=== PATIENT | female | born 1980 | race African-American/Black ===

== ENCOUNTER 2024-01-05 19:47 | Emergency (ER) | payer OTHER, SELFPAY ==
--- NOTE | ~2024-01-05 | XR_ITS ---
EXAMINATION: XR SHOULDER, LEFT CLINICAL INFORMATION: Pain COMPARISON: None available. TECHNIQUE: AP external rotation, Grashey, scapular Y, and axillary views of the left shoulder. FINDINGS: Mild widening of the coracoclavicular distance, may reflect AC joint separation. No acute fracture or dislocation. XR/XR shoulder LT min 2V IMPRESSION: Mild widening of the coracoclavicular distance, may reflect AC joint separation. No acute fracture or dislocation.
[2024-01-05 20:03] VITALS: BP 145/78; PULSE 90; RESP 16; TEMP 36.9; O2SAT 100
[2024-01-05 20:17] VITALS: BP 145/78; BP 170/100; PULSE 109; PULSE 90; RESP 16; TEMP 36.9; O2SAT 100; O2SAT 99; BMI 38.7
[2024-01-05] MEDS: Acetaminophen 325 MG TABLET 975 MG PO (21:16)
[2024-01-05 22:17] LABS: UPreg QC Valid YES; Urine Pregnancy NEGATIVE (NEGATIVE)
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
[2024-01-05] MEDS: Acetaminophen 325 MG TABLET 650 MG PO (23:49)
[2024-01-06 00:27] VITALS: BP 140/74; PULSE 79; RESP 18; TEMP 37.3; O2SAT 99
== END 2024-01-06 00:28 | disposition home or self-care (01) ==
PROVIDERS: Emergency Provider Emergency Medicine; PCP Internal Medicine
DX: S43.102A Unspecified dislocation of left acromioclavicular joint, initial encounter (principal); M25.512 Pain in left shoulder; V43.52XA Car driver injured in collision with other type car in traffic accident, initial encounter; Y93.89 Activity, other specified; Y92.410 Unspecified street and highway as the place of occurrence of the external cause; Y99.8 Other external cause status
CPT/HCPCS: 73030; 81025; 99284

== ENCOUNTER 2025-03-01 21:29 | Emergency (ER) | payer MEDICAID, SELFPAY ==
--- NOTE | ~2025-03-01 | XR_ITS ---
CLINICAL HISTORY: cough, sob 2 view chest x-ray Comparison: None provided Findings: The lungs are clear. Normal size heart. No acute fracture. IMPRESSION: 1. No acute findings. This document has been electronically signed by: Behzad Garcia MD on 03/01/2025 22:41:06
[2025-03-01 21:39] VITALS: BP 147/75; PULSE 82; RESP 18; TEMP 36.5; O2SAT 99; BMI 31.8
[2025-03-01 22:38] LABS: Resp Syncy Virus RNA Qual PCR NEGATIVE (Negative); SARS COV2 PCR INHOUSE NEGATIVE (Negative)
[2025-03-02 00:28] VITALS: BP 115/64; PULSE 87; RESP 18; TEMP 36.9; O2SAT 96
[2025-03-02 00:42] VITALS: PULSE 83; RESP 18; O2SAT 99
[2025-03-02] MEDS: Albuterol Sulfate 2.5 MG, Albuterol/Iprat 2.5/0.5MG 3 ML 3 ML INHALE (00:43)
[2025-03-02 02:05] VITALS: PULSE 100; RESP 20; O2SAT 98
[2025-03-02] MEDS: Albuterol Sulfate 7.5 MG, Albuterol Sulfate (0.083%) 2.5 MG 10 MG INHALE (02:07)
[2025-03-02] MEDS: guaiFEN/Codeine SF 200/20/10ML 10 ML LIQUID 5 ML PO (02:29)
--- OUTSIDE RECORDS SUMMARY | 2025-03-02 03:07 | XMS_ITS | Encounter Summary ---
Author Organization [facility] Address [address] [place] [id number] Phone Care Team Providers Care Paste Up Worker Name Role Phone Pcp, Unknown Primary Care Provider Unavailabl e Encounter Details Date Type Department Care Team (Late st Contact Info) Description 08/26/2019 Telephone [facility] [address] [place] [address] Maria Elena Mitchell [address] [place] [address] [email or web address] Social History Tobacco Use Types Packs/Day Years Used Date Smoking Tobacco: Never Assessed Comments Unknown Sex and Gender Information Value Date Recorded Sex Assigned at Female 08/01/2024 3:13 PM EST Legal Sex Female 11:03 AM EST Gender Identity Female 08/01/2024 3:13 PM EST Sexual Orientation Don't know 08/01/2024 3: 13 PM EST documented as of this encounter Plan of Treatment Not on file documented as of this encounter Visit Diagnoses Not on filedocumented in this encounter Additional Health Concerns Infection Onset Date Last Indicated Resolved Time CoV-Risk Comment:Referred for COVID-19 testing 08/25/2019 08/26/2019 09/09/2019 1:22 AM E DT CoV-Risk 11/20/2019 11/21/2019 12/04/2019 1:23 AM EDT CoV-Risk Comment:Per note documentation 08/01/2024 08/01/2024 12:14 PM EDT documented as of this encounter Care Teams Paste Up Worker Relationship Specialty Start Date End Date Pcp, Unknown PCP - General 08/26/19 documented as of this encounter Additional Source Comments The information contained in this document represents components of the legal health record. It is not the complete legal health record.[facility]
--- OUTSIDE RECORDS SUMMARY | 2025-03-02 03:07 | XMS_ITS | Encounter Summary ---
Author Organization [facility] Address [address] [place] [address] Care Team Providers Care Wool Carder Name Role Phone Maikel Warner Primary Care Provider Unavailab le Encounter Details Date Type Department Care Team (Late st Contact Info) Description 05/19/2024 [facility] Therapeuticst Message [facility] Financial Clearance Department [address] [place] [address] Mychart, Generic Provider [address] [place], [place] [id number] Approval Social History Tobacco Use Types Packs/Day Years Used Date Smoking Tobacco: Never Assessed Comments Unknown Sex and Gender Information Value Date Recorded Sex Assigned at Female 07/10/2023 8:37 AM EST Legal Sex Female 2:25 PM EST Gender Identity Female 07/10/2023 8:37 AM EST Sexual Orientation Straight 07/10/2023 8: 37 AM EST documented as of this encounter Plan of Treatment Not on file documented as of this encounter Visit Diagnoses Not on filedocumented in this encounter Care Teams Wool Carder Relationship Specialty Start Date End Date Makiel Warner [address] [place] [phone] PCP - General Internal Medicine 06/09/24 documented as of this encounter
--- OUTSIDE RECORDS SUMMARY | 2025-03-02 03:07 | XMS_ITS | Encounter Summary ---
Author Organization [facility] Address [address] [place] [phone] Phone Care Team Providers Care Facilities Project Manager Name Role Phone Pcp, Unknown Primary Care Provider Unavailabl e Encounter Details Date Type Department Care Team (Late st Contact Info) Description 08/01/2024 Procedure Pass [facility], Ct Scan - [address] [address] Social History Tobacco Use Types Packs/Day Years Used Date Smoking Tobacco: Never Smokeless Tobacco: Never Alcohol Use Standard Drinks/Week Comments Not Currently 0 (1 standard drink = 0.6 oz pur e alcohol) Education Answer Date Recorded Are you interested in more education? Not on jacobo e 09/21/2022 Are you concerned about learning? Not on file 09/21/2022 No 09/21/2022 No 09/21/2022 Food Answer Date Recorded Within the past 6 months we worried whether our food would run out before we got money to buy more. Never True 08/01/2024 Within the past 6 months the food we bought just didn't last and we didn't have enough money to get more. Never True Residential Stability Answer Date Recor ded What is your housing situation today? I have mary beth sing 08/01/2024 How many times have you move d in the past 12 months? Zero (I did not move) 08/01/2024 Paying for Meds Answer Date Recorded Do you have trouble paying for medicines? No 08/01/2024 Paying Utility Bills Answer Date Record ed Do you have trouble paying your heating or elect ricity bill? No 08/01/2024 Transportation Answer Date Recorded Has the lack of transportati on kept you from medical appointments or from getting medications? No 08/01/2024 Digital Access Answer Date Recorded No 08/01/2024 Yes 08/01/2024 Do you have reliable internet access at home? Ye s 08/01/2024 Do you have a device (e.g., phone, tablet, computer) with a working camera? Yes 08/01/2024 Intimate Partner Violence Answer Date R ecorded Are you denied basic needs s uch as food, clothing, or medical care? No 08/01/2024 In the past 12 months have y ou been in a relationship with a person who hurts, threatens, or tries to control you? No 08/01/2024 Are you denied basic needs s uch as food, clothing, or medical care? No 08/01/2024 In the past 12 months have y ou been in a relationship with a person who hurts, threatens, or tries to control you? No 08/01/2024 Comments No Sex and Gender Information Value Date Recorded Sex Assigned at Female 08/01/2024 3:13 PM EST Legal Sex Female 11:03 AM EST Gender Identity Female 08/01/2024 3:13 PM EST Sexual Orientation Don't know 08/01/2024 3 :13 PM EST documented as of this encounter Functional Status * Calculated C-SSRS Risk Score (Lifetime/Recent) Answer Date of Assessment Author No Risk Indicated 08/01/2024 2:03 PM Amarilis Kelley RN * [place] Suicide Severity Rating Scale (Screener/Recent Self-Report) Question Answer Date of Assessment Author 1. Wish to be (Past 1 Month) No 08/01/2024 2:03 PM Maykel Kelley ph, RN 2. Non-Specific Active Suici lucian Thoughts (Past 1 Month) No 08/01/2024 2:03 PM Maykel Kelley RN 6. Suicidal Behavior (Lifetime) No 2:03 PM Maykel Kelley RN documented as of this encounter Plan of Treatment Not on file documented as of this encounter Visit Diagnoses Not on filedocumented in this encounter Additional Health Concerns Infection Onset Date Last Indicated Resolved Time CoV-Risk Comment:Per note documentation 08/01/2024 08/01/2024 12:14 PM EDT documented as of this encounter Care Teams Facilities Project Manager Relationship Specialty Start Date End Date Pcp, Unknown PCP - General 08/26/19 documented as of this encounter Additional Source Comments The information contained in this document represents components of the legal health record. It is not the complete legal health record.[facility]
--- OUTSIDE RECORDS SUMMARY | 2025-03-02 03:07 | XMS_ITS | Clinical Summary ---
Author Organization [facility] Address [address] [place] [address] Phone Care Team Providers Care Public Relations Senior Associate Name Role Phone Pcp, Unknown Primary Care Provider Unavailabl e Allergies Active Allergy Reactions Criticality Noted Date Comments Aspirin Shortness Of Breath,Wheezing High 01/10/2010 Other Reaction(s): Other (See Comments), whezing, breathing difficulty Other reaction(s): whezing, breathing difficulty Cat Dander 08/05/2014 Diph,Pertus(Acel),Tet Ped (Pf) 2012 Other Reaction(s): Rash/Dermatitis Full body rash per pt Dog Dander Hives,Itching,Shortn ess Of Breath,Wheezing High 08/05/2014 Haemophilus Influenzae Type B Unknown 08/20/2022 Latex Other (See Comments),Rash Low 01/10/2010 Other Reaction(s): hands itch, redness, feel like burning on skin Other Reaction(s): Hives/Urticaria Mushroom Unknown 04/07/2024 Pineapple Swelling,Unknown High 04/07/2024 Other Reaction(s): ictching in mouth Shellfish Containing Products Anaphylaxis,Other (See Comments) High 08/05/2014 Other Reaction(s): itching in mouth, lips swell Medications multivit-mins no.11-folic acid 5 mg Tab Multivitamin Active montelukast (SINGULAIR) 10 mg tablet Take 10 mg by mouth nightly at bedtime. 05/24/20 23 Active NIFEdipine (ADALAT CC) 30 MG 24 hr tablet Take 60 mg by mouth daily. 03/30/20 24 Active cetirizine (ZYRTEC) 10 MG tablet Take 10 mg by mouth daily. Active buPROPion (WELLBUTRIN XL) 150 MG ER 24 hr tablet Take 150 mg by mouth every morning. Active albuterol 90 mcg/actuation inhaler Inhale 2 puffs into the lungs every 4 (four) hours as needed for wheezing or shortness of breath/dyspnea. Active ADVAIR DISKUS 100-50 mcg/dose DISKUS Inhale 100 mcg/actuation of fluticasone into the lungs 2 (two) times a day. 07/29/19 25 Active ZEPBOUND 5 mg/0.5 mL subcutaneous pen inject 0.5 ml (5 mg total) under the skin every 7 days Active fluticasone propionate (FLONASE) 50 mcg/actuation nasal spray SPRAY 1 SPRAY INTO EACH NOSTRIL DAILY FOR 90 DAYS ADMINISTER INTO EACH NOSTRIL 04/26/20 24 025 Discontin ued(No longer taking) Active Problems Problem Noted Date Diagnosed Date Female infertility 02/10/2025 Overview (02/10/2025): Partner: Bryn Bland 06/10/1981 Arthritis 12/01/2024 Overview (02/10/2025): PER [facility] [employer] [employer] RECORDS Eczema 12/01/2024 Overview (02/10/2025): PER [facility] [employer] RECORDS Heart murmur 12/01/2024 Overview (02/10/2025): PER [facility] [employer] RECORDS GERD (gastroesophageal reflux disease) Incompetence of cervix 12/01/2024 Overview (02/10/2025): PER [facility] [employer] RECORDS Migraine with aura 12/01/2024 Overview (02/10/2025): PER [facility] [employer] RECORDS PCOS (polycystic ovarian syndrome) 12/01/2024 Other specified anemias 08/03/2024 Assessment & Plan (08/03/2024 5:21 PM EDT): Hemoglobin August 01 was 11.8 now drifted down to 9.2. Question if patient has had hemodilution. No evidence of GI blood loss. - Will check iron studies - FIT Small bowel obstruction 08/01/2024 Assessment & Plan (08/03/2024 5:21 PM EDT): Previous history of SBO. States that she had a hysterectomy with known adhesions. Linzess placed on hold. Seen by surgery and given Colace and bowel movements. - conservative management with bowel rest, IV fluids, pain medications and nausea medications. - not having vomiting, passing flatus, did not need NG. Patient has remained stable with no nausea and vomiting. Had passage of small bowel movement and flatus but no significant bowel movement. -Seen in follow-up by surgery and given Gastrografin. - would hold off on further doses of linzess until obstruction resolved Assessment & Plan (08/02/2024 6:21 PM EDT): - cont conservative with bowel rest, IV fluids, pain medications and nausea medications. - not having vomiting, passing flatus, does not seem to need NG - would hold off on further doses of linzess until obstruction resolved - cont colace and suppositories as ordered by Dr. Sr - if not improving surgery planning for gastrografin tomorrow - replace electrolytes as recommended by Dr. Sr - monitor for fever or leukocytosis - she did have decrease in hemoglobin, may have had hemoconcentration at presentation, no acute bleeding seen, cont to monitor Assessment & Plan (08/01/2024 10:43 PM EST): Will treat conservatively with bowel rest, IV fluids, pain medications and nausea medications. Will have surgery seeing her in consultation. Perineal itching, female 05/05/2024 Overview (05/05/2024): Suspect eczema, Rx sent trimacinolone Vaginal discharge 05/05/2024 Overview (05/05/2024): With some odor Perineal itching c/w eczema Assessment & Plan (05/05/2024 10:33 AM EST): Neg NESS and wet prep, swabs sent; unable to check pH today, can try OTC repHresh gel 1-2 doses Essential hypertension Assessment & Plan (08/03/2024 5:21 PM EDT): Blood pressure stable. Continue nifedipine. Assessment & Plan (08/02/2024 6:21 PM EDT): Hemodynamically stable. Continue nifedipine. Assessment & Plan (08/01/2024 10:43 PM EST): Hemodynamically stable. Continue nifedipine. Moderate persistent asthma Assessment & Plan (08/03/2024 5:21 PM EDT): Not currently in an exacerbation. Continue home medications. Assessment & Plan (08/02/2024 6:21 PM EDT): Not currently in an exacerbation. Continue home medications. Assessment & Plan (08/01/2024 10:43 PM EST): Not currently in an exacerbation. Continue home medications. Encounters Date Type Department Care Team Description 02/10/2025 1:50 PM EDT Office Visit [facility] [address] [place] [address] Dallin Pierre MD Female infertility (Primary Dx) 12/30/2024 Telephone [facility] [address] [place] [address] Lauren Og CNM Appointment 12/23/2024 Telephone [facility] [address] [place] [address] Referring, Not Required Counseling from Last 3 Months Immunizations Immunization Administration Dates Next Due COVID-19 (Pre-03/18) Pfizer Vaccine, mRNA, PF 05/05/2021,05/05/2021,05/05/2021,2020,05/05/2021,05/05/2021,04/14/2021,1 06/14/2020,04/14/2021,04/14/2021, 021,04/14/2021 Influenza Recombinant Trival ent Preservative Free IM 03/02/2024 Influenza, Unspecified Formulation 04/01/2020 MMR 04/25/2016, 6,04/25/2016,2015,04/25/2016,04/25/2016 Tdap 04/05/2022, 2,04/05/2022,2021,04/05/2022,04/05/2022 Family History Medical History Relation Comments Diabetes Father Hypertension Father Heart failure Maternal Grandmother Hypertension Maternal Grandmother Diabetes Mother Hypertension Mother Lupus Mother Relation Status Comments Brother 1 Alive Brother 2 Alive Brother 3 Alive Father Maternal Grandfather Maternal Grandmother Mother Alive Paternal Grandfather Paternal Grandmother Social History Tobacco Use Types Packs/Day Years Used Date Smoking Tobacco: Never Smokeless Tobacco: Never Tobacco Cessation:Counseling Given: Not Answered Alcohol Use Standard Drinks/Week Comments Not Currently [...] Don't know 08/01/2024 3: 13 PM EST Last Filed Vital Signs Vital Sign Reading Time Taken Comments Blood Pressure 104/66 02/10/2025 2:02 PM EDT Pulse 87 08/04/2024 3:51 PM EDT Temperature 36.6 C (97.9 F) 08/04/2024 3:51 PM EDT Respiratory Rate 16 08/04/2024 3:51 PM EDT Oxygen Saturation 99% 08/04/2024 3:51 PM EDT Inhaled Oxygen Concentration - - Weight 81.6 kg (179 lb 12.8 oz) 02/10/2025 2:02 PM EDT Height 158.8 cm (5' 2.5 ) 08/01/2024 10 :12 PM EST Body Mass Index 32.36 08/01/2024 10:12 PM EST Plan of Treatment Health Maintenance Due Date Last Done Comments DEPRESSION SCREENING 1994 HEPATITIS C SCREENING 01/10/2000 HIV ONE-TIME SCREENING (18-65 YEARS) 01/10/2000 PNEUMOCOCCAL VACCINES (0-49 years) (1 of 2 - PCV) 2001 PAP SMEAR 2003 MAMMOGRAM 2022 INFLUENZA VACCINE (#1) 2024 , 04/01/2020, 03/12/2017, Additional history exists COVID-19 VACCINE (2024- season) 2025 05/05/2021, 05/05/2021, 05/05/2021, Additional history exists BLOOD PRESSURE 08/10/2025 02/10/2025 SCREENING FOR DIABETES 12/11/2027 12/10/2024, 2024 SMOKING STATUS SCREENING (Once After 26 Yrs) Completed 02/10/2025 HEPATITIS A VACCINES Aged Out No long er eligible based on patient's age to complete this topic HIB VACCINES Aged Out No longer eligi ble based on patient's age to complete this topic MENINGOCOCCAL VACCINES (ACWY) Aged Out No longer eligible based on patient's age to complete this topic MENINGOCOCCAL VACCINES (B) Aged Out N o longer eligible based on patient's age to complete this topic Medical Devices Not on file Insurance [address] [place] [address] EMPLOYEES [employer] FULL EMPLOYEES FAMILY [employer] FULL [employer] [facility] [facility] EMPLOYEES FAMILY [employer] NET FULL EMPLOYEES FAMILY [employer]ULL EMPLOYEES FAMILY [employer] NET FULL [employer] [place] [id number] [facility] FULL [facility] Advance Directives For more information, please contact: [phone] (9AM - 5PM [facility], Saturday-Saturday) * Full Code (Latest Code Status on File) Date Activated Date Inactivated Comments 08/01/2024 10:36 PM Question Answer Comments Code Status Confirmed With: Patient Care Teams Public Relations Senior Associate Relationship Specialty Start Date End Date Pcp, Unknown PCP - General 08/26/19 Additional Source Comments The information contained in this document represents components of the legal health record. It is not the complete legal health record.[facility]
--- OUTSIDE RECORDS SUMMARY | 2025-03-02 03:07 | XMS_ITS | Patient Health Record ---
[facility] Organization [facility] Address [address] [place] [id number] Care Team Providers Care Certified Master Locksmith Name Role Phone Alondra Waters MD Primary Care Provider Unavail able Saira Moralez Unavailable [phone] Allergies Allergen (clinical drug ingredient) Drug/Non Drug Allergy documented on EMR Reaction Allergy Type Onset Date Status aspirin Aspirin weezing Drug Allergy Active Reason For Referral No Information Medications Medication SIG (Take, Route, Fr equency, Duration) Notes Start Date End Date Status Terconazole 0.8 % 1 applicatorful at b edtime Vaginal Once a day; Duration: 3 day(s) 11/24/2019 Active Fluconazole 150 MG 1 tablet Orally Once a day; Duration: 1 days 11/24/2019 Active Aygestin 5 MG 1 tablet Orally Once a day; Duration: 30 day(s) 06/17/2019 Active Vitamin D Active Singulair Active Flovent HFA Active Multivitamin Active Social History Tobacco Use: Social History Observation Description Date Details (start date - stop date) Never Smoker NA - NA Tobacco Use/Smoking Question Answer Notes Are you a nonsmoker Alcohol Screen (Audit-C) Question Answer Notes Did you have a drink contain ing alcohol in the past year? Yes How often did you have a dri nk containing alcohol in the past year? Monthly or less (1 point) How many drinks did you have on a typical day when you were drinking in the past year? 1 or 2 drinks (0 point) Points 1 Interpretation Negative Sexual History Question Answer Notes Had sex in the past 12 months (vaginal, oral, or anal)? No Tobacco use other than smoking: Question Answer Notes Are you an other tobacco user? No Problems Problem Type SNOMED Code ICD Code Onset Dates Problem Status W/U Status Risk Notes Problem Excessive and frequent menstruation (519082623) Excessive and frequent menstruation with regular cycle (N92.0) Active confirmed Problem Iron deficiency anemia (92838285) Iron deficiency anemia, unspecified (D50.9) Active confirmed Problem Anxiety disorder (809966755) Anxiety disorder, unspecified (F41.9) Active confirmed Problem Uncomplicated asthma (disorder) (494112670) Unspecified asthma, uncomplicated (J45.909) Active confirmed Problem Subacute and chronic vaginitis (N76.1) Active confirmed Plan Of Treatment Pending Test Test Name Order Date Test, Urine 06/17/2019 Ultrasound : Pelvic 11/20/2017 Ultrasound : Sono Hystergram 06/03/2019 ONE SWAB 11/20/2017 COMPLETE BLOOD COUNT 01/14/2018 ESTRADIOL 01/14/2018 FSH 01/14/2018 LH 01/14/2018 THIN PREP,HPV,DEMETRICE IF HPV+/CYT-,CT/GC(>2 9YR)(SCRN) 11/20/2017 Insurance Providers Payer Name Payer Address Payer Phone Subscriber Number Group Number Insured Name Patient Relationship to Insured Coverage Start Date Coverage End Date [employer] [address] [place] [address] [id number] BJ BUSTOS Self - patient is the insured Medical (General) History Medical History History ICD Code Anxiety disorder, unspecified Unspecified asthma, uncomplicated J45.90 9 Anxiety disorder, unspecified F41.9 Subacute and chronic vaginitis N76.1 Iron deficiency anemia, unspecified D50. 9 Asymptomatic premature menopause E28.319 Leiomyoma of uterus, unspecified D25.9 Intramural leiomyoma of uterus D25.1 Family history of malignant neoplasm of ovary Z80.41 Atypical squamous cells of u ndetermined significance on cytologic smear of cervix (ASC-US) R87.610 Surgical History Surgery Date(Month/Year) Carpel Tunnel Repair x2 Left and Right H and 2011/2012 Hiatal Hernia Repair 2016 vertical gastric sleeve 2016 HSG (tubes patent) 2016 Hospitalization History Reason Date(Month/Year) See Surgical Hx
--- OUTSIDE RECORDS SUMMARY | 2025-03-02 03:07 | XMS_ITS | Clinical Summary ---
Author Organization [facility] Address [address] [place] [address] Care Team Providers Care Production Assembly Supervisor Name Role Phone Maikel Warner DO Primary Care Provider [phone] Allergies Active Allergy Reactions Criticality Noted Date Comments Aspirin 08/20/2022 Influenza Virus Vaccine 08/20/2022 Latex 08/20/2022 Shellfish Allergy Other (see comments) 09/27/19 22 Medications montelukast (SINGULAIR) 10 MG tablet Take 10 mg by mouth 1 (one) time each day 3 Active Vit-Iron Carbonyl-FA (PNV Tabs 29-1) 29-1 MG tablet Take 1 tablet by mouth 1 (one) time each day 2 Active cetirizine (ZyrTEC) 10 MG tablet Take 10 mg by mouth 1 (one) time each day For 30 days 3 Active Ventolin HFA 108 (90 Base) MCG/ACT inhaler Inhale 2 puffs every 4 (four) to 6 (six) hours if needed 3 Active fluticasone-gurpreet meterol (ADVAIR HFA) 115-21 MCG/ACT inhaler Inhale 2 puffs in the morning and 2 puffs before bedtime. Rinse mouth with water after use to reduce aftertaste and incidence of candidiasis. Do not swallow.. Active acetaminophen (TYLENOL) 500 MG tablet Take 500 mg by mouth every 6 (six) hours if needed for mild pain Active NIFEdipine CC (ADALAT CC) 30 MG 24 hr tablet TAKE 1 TABLET (30 MG TOTAL) BY MOUTH TWICE DAILY IN THE MORNING AND IN THE EVENING. 180 tablet 3 4 Active Active Problems Problem Noted Date Diagnosed Date Anxiety disorder 01/13/2023 01/13/2023 Asthma 01/13/2023 01/13/2023 Excessive and frequent menstruation 01/13/2023 01/13/2023 Hypertension 01/13/2023 01/13/2023 Iron deficiency anemia 01/13/2023 Resolved Problems Problem Noted Date Diagnosed Date Resolved Date Subacute and chronic vaginitis 01/13/2023 01/13/2023 03/14/2023 Glenoid labrum tear 12/04/2021 03/14/20 23 Immunizations Immunization Administration Dates Next Due Influenza, Unspecified 04/01/2020 Family History Medical History Relation Comments Diabetes Father Hypertension Father Diabetes Mother Hypertension Mother Relation Status Comments Father Mother Social History Tobacco Use Types Packs/Day Years Used Date Smoking Tobacco: Never Smokeless Tobacco: Never Alcohol Use Standard Drinks/Week Comments Yes 0 (1 standard drink = 0.6 oz pur e alcohol) Comments Unknown Sex and Gender Information Value Date Recorded Sex Assigned at Not on file Legal Sex Female 8:43 AM EDT Gender Identity Not on file Sexual Orientation Not on file Last Filed Vital Signs Vital Sign Reading Time Taken Comments Blood Pressure 132/74 03/14/2023 8:07 AM EDT Pulse 62 03/14/2023 8:07 AM EDT Temperature - - Respiratory Rate - - Oxygen Saturation 99% 03/14/2023 8:07 AM EDT Inhaled Oxygen Concentration - - Weight 98 kg (216 lb) 03/14/2023 8:07 AM EDT Height 158.8 cm (5' 2.5 ) 03/14/2023 8:07 AM EDT Body Mass Index 38.88 03/14/2023 8:07 AM EDT Plan of Treatment Health Maintenance Due Date Last Done Comments Hepatitis B Vaccine (1 of 3 - 19+ 3-dose series) 01/0901/09/2012 Pneumococcal Vaccine: Peds ( 0 to 5 Years) and At-Risk Patients (6 to 49 Years) (1 of 2 - PCV) 2001 Procedures Procedure Name Priority Date/Time Associated Diagnosis Comments PTH, INTACT Routine 12/10/2024 11:03 AM EDT MAGNESIUM Routine 12/10/2024 11:03 AM EDT PHOSPHATE ( PHOSPHORUS) Routine 12/10/2024 11:03 AM EDT URIC ACID Routine 12/10/2024 11:03 AM EDT VITAMIN D 25 HYDROXY Routine 12/10/2024 11:03 AM EDT HEMOGLOBIN A1C Routine 12/10/2024 11:03 AM EDT PROTEIN / CREATININE RATIO, URINE Routine 12/10/2024 11:03 AM EDT LIPID PANEL Routine 12/10/2024 11:03 AM EDT URINALYSIS WITH MICROSCOPIC Routine 12/10/2024 11:03 AM EDT COMPREHENSIVE METABOLIC PANEL Routine 12/10/2024 11:03 AM EDT CBC AND DIFFERENTIAL Routine 12/10/2024 11:03 AM EDT MICROSCOPIC EXAMINATION - DO NOT USE Routine 12/10/2024 11:03 AM EDT from Last 3 Months Results * Microscopic Examination (12/10/2024 11:03 AM EDT) WBC, Urine None seen 0 - 5 /hpf [facility] RBC, Urine 0-2 0 - 2 /hpf [facility] Squamous Epithelial, Urine 0-10 0 - 10 /hpf [facility] Casts None seen None seen /lpf [facility] Bacteria, Urine None seen None seen/Few [facility] 12/10/2024 11:0 3 AM EDT 12/10/2024 us Avelino Berman MD LAB MICROBIOLOGY - GENERAL OR DERABLES Final Result [facility] [address] [place] [address] * Protein, Total, Random Urine w/Creatinine (Protein/Creat Ratio) (12/10/2024 11:03 AM EDT) Creatinine, Ur 498.2 Not Estab. mg/dL [facility] Protein, Ur 24.5 Not Estab. mg/dL [facility] Urine Protein/Creatin ine Ratio 49 0 - 200 mg/g creat [facility] 12/10/2024 11:0 3 AM EDT 12/10/2024 us Avelino Berman MD LAB URINE ORDERABLES Final Re sult [facility] [address] [place] [address] * Vitamin D 25 Hydroxy (12/10/2024 11:03 AM EDT) Vitamin D, 25-OH, Total 45.0 30.0 - 100.0 ng/mL [facility] Comment: Vitamin D deficiency has been defined by the [place] of Medicine and an Endocrine Society practice guideline as a level of serum 25-OH vitamin D less than 20 ng/mL (1,2). The Endocrine Society went on to further define vitamin D insufficiency as a level between 21 and 29 ng/mL (2). 1. IOM ([place] of Medicine). 2010. Dietary reference intakes for calcium and D. [place]: The National Academies Press. 2. Carmelita MF, Betzy NC, Keerthi RICHARD, et al. Evaluation, treatment, and prevention of vitamin D deficiency: an Endocrine Society clinical practice guideline. JCEM. 2010; 96(7):1911-30. 12/10/2024 11:0 3 AM EDT 12/10/2024 us Avelino Berman MD LAB BLOOD ORDERABLES Final Re sult [facility] [address] [place] [address] * (ABNORMAL) Urinalysis with microscopic (12/10/2024 11:03 AM EDT) Pathologist [facility] Specific [place], Urine >=1.030(A) 1.005 - 1.030 [facility] [phone] pH Urine 5.5 5.0 - 7.5 [facility] Color, Urine Yellow Yellow [facility] Appearance Urine Clear Clear [facility] [place] WBC Esterase Urine Negative Negative [facility] Protein, Ur 1+(A) Negative/Tra ce [facility] Glucose, Ur Negative Negative [facility] Ketones, Urine Trace(A) Negative [facility] [place] [phone] Blood Urine Negative Negative [facility] Bilirubin Urine Negative Negative [facility] [place] Urobilinogen Urine 1.0 0.2 - 1.0 mg/dL [facility] Nitrite, Urine Negative Negative [facility] [place] [phone] Microscopic Examination See below: [facility] Comment:Microscopic was christopher cated and was performed. 12/10/2024 11:0 3 AM EDT 12/10/2024 us Avelino Berman MD LAB URINE ORDERABLES Final Re sult [facility] [address] [place] [address] * (ABNORMAL) CBC and Differential (12/10/2024 11:03 AM EDT) WBC 4.4 3.4 - 10.8 x10E3/uL [facility] RBC 4.01 3.77 - 5.28 x10E6/uL [facility] Hemoglobin 12.6 11.1 - 15.9 g/dL [facility] Hematocrit 39.3 34.0 - 46.6 % [facility] MCV 98(H) 79 - 97 fL [facility] MCH 31.4 26.6 - 33.0 pg [facility] MCHC 32.1 31.5 - 35.7 g/dL [facility] RDW 16.0(H) 11.7 - 15.4 % [facility] Platelets 337 150 - 450 x10E3/uL [facility] Neutrophils Relative 44 Not Estab. % [facility] Lymphocytes Relative 40 Not Estab. % [facility] Monocytes 9 Not Estab. % [facility] Eosinophils Relative 6 Not Estab. % [facility] Basophils Relative 1 Not Estab. % [facility] Neutrophils Absolute 1.9 1.4 - 7.0 x10E3/uL [facility] Lymphocytes Absolute 1.7 0.7 - 3.1 x10E3/uL [facility] Monocytes Absolute 0.4 0.1 - 0.9 x10E3/uL [facility] Eosinophils Absolute 0.3 0.0 - 0.4 x10E3/uL [facility] Basophils Absolute 0.0 0.0 - 0.2 x10E3/uL [facility] Immature Granulocytes 0 Not Estab. % [facility] Immature Grans (Absolute) 0.0 0.0 - 0.1 x10E3/uL [facility] 12/10/2024 11:0 3 AM EDT 12/10/2024 Avelino Berman MD LAB BLOOD ORDERABLES Final Re sult Performing Organization Address City/[facility]/ZIP Co de Phone Number [facility] [place] [address] [place] [address] * Uric Acid (12/10/2024 11:03 AM EDT) Uric Acid 5.0 2.6 - 6.2 mg/dL [facility] Comment:Therapeutic target f or gout patients: <6.0 12/10/2024 11:0 3 AM EDT 12/10/2024 Avelino Berman MD LAB BLOOD ORDERABLES Final Re sult Performing Organization Address [facility] Co de Phone Number [facility] [address] [place] [address] * Phosphorus (12/10/2024 11:03 AM EDT) Phosphorus 3.5 3.0 - 4.3 mg/dL [facility] 12/10/2024 11:0 3 AM EDT 12/10/2024 Avelino Berman MD LAB BLOOD ORDERABLES Final Re sult Performing Organization Address City/[facility] Co de Phone Number [facility] [address] [place] [address] * PTH, Intact (12/10/2024 11:03 AM EDT) PTH 23 15 - 65 pg/mL [facility] 12/10/2024 11:0 3 AM EDT 12/10/2024 us Avelino Berman MD LAB BLOOD ORDERABLES Final Re sult Performing Organization Address [facility]/ZIP Co de Phone Number [facility] [place] [address] [place] [address] * Magnesium (12/10/2024 11:03 AM EDT) Magnesium 2.0 1.6 - 2.3 mg/dL [facility] 12/10/2024 11:0 3 AM EDT 12/10/2024 us Avelino Berman MD LAB BLOOD ORDERABLES Final Re sult Performing Organization Address [facility] Co de Phone Number [facility] [address] [place] [address] * (ABNORMAL) Hemoglobin A1c (12/10/2024 11:03 AM EDT) Hemoglobin A1C 4.6(L) 4.8 - 5.6 % [facility] Comment: Prediabetes: 5.7 - 6.4 Diabetes: >6.4 Glycemic control for adults with diabetes: <7.0 12/10/2024 11:0 3 AM EDT 12/10/2024 us Avelino Berman MD LAB BLOOD ORDERABLES Final Re sult Performing Organization Address [facility] Co de Phone Number [facility] [place] [address] [place] [address] * (ABNORMAL) Lipid panel (12/10/2024 11:03 AM EDT) Cholesterol 181 100 - 199 mg/dL [facility] Triglycerides 42 0 - 149 mg/dL [facility] HDL 72 >39 mg/dL [facility] VLDL Cholesterol Aden 9 5 - 40 mg/dL [facility] LDL Calculated 100(H) 0 - 99 mg/dL [facility] 12/10/2024 11:0 3 AM EDT 12/10/2024 us Avelino Berman MD LAB BLOOD ORDERABLES Final [facility]ult [facility] [address] [place] [address] * Comprehensive Metabolic Panel (12/10/2024 11:03 AM EDT) Glucose 74 70 - 99 mg/dL [facility] BUN 14 6 - 24 mg/dL [facility] Creatinine 0.99 0.57 - 1.00 mg/dL [facility] eGFR CKD-EPI CR 2020 73 >59 mL/min/1.7 3 [facility] BUN/Creatinine Ratio 14 9 - 23 [facility] Sodium 143 134 - 144 mmol/L [facility] Potassium 4.1 3.5 - 5.2 mmol/L [facility] Chloride 105 96 - 106 mmol/L [facility] Bicarbonate (CO2) 21 20 - 29 mmol/L [facility] Calcium 10.1 8.7 - 10.2 mg/dL [facility] Total Protein 7.4 6.0 - 8.5 g/dL [facility] Albumin 4.5 3.9 - 4.9 g/dL [facility] Globulin 2.9 1.5 - 4.5 g/dL [facility] Total Bilirubin 0.3 0.0 - 1.2 mg/dL [facility] Alkaline Phosphatase 66 44 - 121 IU/L [facility] AST (SGOT) 15 0 - 40 IU/L [facility] ALT (SGPT) 8 0 - 32 IU/L [facility] 12/10/2024 11:0 3 AM EDT 12/10/2024 us Avelino Berman MD LAB BLOOD ORDERABLES Final Re sult [facility] [address] [place] [address] from Last 3 Months Insurance [employer] Medicaid [employer] Medicaid Care Teams Production Assembly Supervisor Relationship Specialty Start Date End Date Maikel Warner DO [address] [place] [address] PCP - General Internal Medicine 03/27/22
--- OUTSIDE RECORDS SUMMARY | 2025-03-02 03:07 | XMS_ITS | Clinical Summary ---
Author Organization [facility] Address [address] [place] [address] Care Team Providers Care Well Logger Name Role Phone Maikel Warner Primary Care Provider Unavailab le Allergies Active Allergy Reactions Criticality Noted Date Comments Aspirin Dyspnea,Wheezing High 07/17/2023 Diphtheria,Pertussis(A cell),Tetanus Pedi Vaccine Other (see comments) 2012 Full body rash per pt Dog Dander Dyspnea,Hives,Itchin g, Wheezing High 04/07/2024 Haemophilus Influenzae Type B Unknown 08/20/2022 Latex Rash 07/17/2023 Mushroom Unknown 04/07/2024 Pineapple Unknown,Swelling High 04/07/2024 Shellfish Containing Products Anaphylaxis High 07/17/2023 Shellfish Derived Other (see comments) 09/27/19 22 Medications acetaminophen (TYLENOL) 500 mg tablet Take 500 mg by mouth every 6 hours as needed. Active Ventolin HFA 90 mcg/actuation inhaler Active cetirizine (ZyrTEC) 10 mg tablet SMARTSI Tablet(s) By Mouth Daily 05/24/2023 Active Advair Diskus 100-50 mcg/dose inhaler Active Linzess 72 mcg Take 145 mcg by mouth once a day. 07/09/2023 Active montelukast (SINGULAIR) 10 mg tablet SMARTSI Tablet(s) By Mouth Daily 05/24/2023 Active buPROPion XL (WELLBUTRIN XL) 150 mg tablet SMARTSI Tablet(s) By Mouth Every Morning 01/29/2024 Active diclofenac (VOLTAREN) 1% gel SMARTSI Gram(s) Topical 4 Times Daily 09/05/2023 Active NIFEdipine CC (ADALAT CC) 30 mg 24 hr tablet TAKE 1 TABLET (30 MG TOTAL) BY MOUTH TWICE DAILY IN THE MORNING AND IN THE EVENING. 03/30/2024 Active NIFEdipine CC (ADALAT CC) 30 mg 24 hr tablet SMARTSI Tablet(s) By Mouth Morning-Even ing 03/30/2024 Active NIFEdipine XL (Procardia XL) 60 mg tablet 07/10/2019 Active Zepbound 5 mg/0.5 mL pen injector pen injector SMARTSI Milligram(s) SUB-Q Once a Week 03/09/2024 Active fluconazole (DIFLUCAN) 150 mg tablet Take 1 tablet (150 mg total) by mouth once a day. 1 tablet 1 05/29/2024 Active Active Problems Problem Noted Date Diagnosed Date Surgical followup 05/22/2024 Breast hypertrophy 11/11/2023 Social History Tobacco Use Types Packs/Day Years Used Date Smoking Tobacco: Never Assessed Comments Unknown Sex and Gender Information Value Date Recorded Sex Assigned at Female 07/10/2023 8:37 AM EST Legal Sex Female 2:25 PM EST Gender Identity Female 07/10/2023 8:37 AM EST Sexual Orientation Straight 07/10/2023 8: 37 AM EST Last Filed Vital Signs Vital Sign Reading Time Taken Comments Blood Pressure - - Pulse - - Temperature - - Respiratory Rate - - Oxygen Saturation - - Inhaled Oxygen Concentration - - Weight 99.8 kg (220 lb) 07/17/2023 2:09 PM EST Height 157.5 cm (5' 2 ) 07/17/2023 2:09 PM EST Body Mass Index 40.24 07/17/2023 2:09 PM EST Plan of Treatment Health Maintenance Due Date Last Done Comments Cervical Cancer Screening 1982 HIV Screening 1982 HPV and Pap Smear 1982 Hepatitis C Screening 1982 Pap Smear 1982 Varicella Vaccines (1 of 2 - 13+ 2-dose series) 1995 Pneumococcal Vaccine: Pediat baldo (0-5 Years) and At-Risk Patients (6-50 Years) (1 of 2 - PCV) 2001 Hepatitis B Vaccines (2 of 3 - 19+ 3-dose series) 05/23/2016 04/25/2016, 2012 Mammogram 2022 Alcohol/Substance Use Screening 05/27/2024 Depression Screening and Follow-Up 05/27/2024 Social Drivers of Health Ana Laura ual Screening 05/27/2024 COVID-19 Vaccine (3 - 2024-2 6 season) 2025 05/05/2021, 04/14/2021 Influenza Vaccine (#1) 2025 , 04/01/2020, 03/12/2017, Additional history exists DTaP,Tdap,and Td Vaccines (3 - Td or Tdap) 04/05/2032 04/05/2022, 09/02/2012 RSV Vaccine (60+ years old a nd patients) (1 - 1-dose 75+ series) 2057 Insurance [place] [id number] Care Teams Well Logger Relationship Specialty Start Date End Date Maikel Warner [address] [place] [address] PCP - General Internal Medicine 06/09/24
--- OUTSIDE RECORDS SUMMARY | 2025-03-02 03:07 | XMS_ITS ---
Author Name [facility] Organization Unknown Care Team Organization Name Specialty Phone Email Start Date End Da sacha [facility] Edging Machine Setter (ECMP) ABHI Primary Care 09/23/2024 [facility] NULL Primary Care 06/04/2022 01/13/2024 [facility] Mayra Cobb Primary Care 04/03/2022
--- OUTSIDE RECORDS SUMMARY | 2025-03-02 03:07 | XMS_ITS | Clinical Summary ---
Author Organization [facility] Address [address] [place] [address] Phone Care Team Providers Care Development Manager Name Role Phone Maikel Warner DO Primary Care Provider [phone] Allergies Active Allergy Reactions Criticality Noted Date Comments Aspirin Wheezing 01/10/2010 Cat Dander 08/05/2014 Diph,Pertus(Acel),Tet Ped (Pf) 2012 Other Reaction(s): Rash/Dermatitis Full body rash per pt Dog Dander 08/05/2014 Latex 01/10/2010 Other Reaction(s): Hives/Urticaria Shellfish Derived 08/05/2014 Medications albuterol HFA (PROAIR HFA ; PROVENTIL HFA ; VENTOLIN HFA) 90 mcg/actuation inhaler Inhale 2 Puffs into the lungs 4 times daily as needed for Cough or Wheezing. 6 Active buPROPion XL (WELLBUTRIN XL) 150 mg 24 hr tablet Take 1 Tablet by mouth every morning. Active clotrimazole-beta methasone (LOTRISONE) 1-0.05 % cream Apply sparingly to affected skin bid x 7-10 days 5 Active fluticasone propionate (FLONASE) 50 mcg/actuation nasal spray 1 [place] by Nasal route daily. 6 Active fluticasone HFA (FLOVENT HFA) 110 mcg/actuation inhaler Inhale 2 Puffs into the lungs 2 times daily. Gargle mouth after use 6 Active multivit-min/ferr ous fumarate (MULTI VITAMIN ORAL) Take by mouth. Activ e tirzepatide, weight loss, (Zepbound) 5 mg/0.5 mL injectionIndicati ons:Class 2 obesity due to excess calories with body mass index (BMI) of 35.0 to 35.9 in adult, unspecified whether serious comorbidity present Inject 0.5 mL (5 mg total) under the skin every 7 (seven) days. 2 mL 5 Active linaCLOtide (LINZESS) 290 mcg capsuleIndication s:Irritable bowel syndrome with constipation Take 1 capsule (290 mcg total) by mouth 1 (one) time each day. 30 each 11 5 12/23/19 26 Active Active Problems Problem Noted Date Diagnosed Date Arthritis 12/01/2024 Overview (12/01/2024): PER [facility] INSURANCE RISK MANAGER RECORDS PCOS (polycystic ovarian syndrome) 12/01/2024 Eczema 12/01/2024 Overview (12/01/2024): PER [facility] INSURANCE RISK MANAGER RECORDS GERD (gastroesophageal reflux disease) Heart murmur 12/01/2024 Overview (12/01/2024): PER [facility] INSURANCE RISK MANAGER RECORDS Incompetence of cervix 12/01/2024 Overview (12/01/2024): PER [facility] INSURANCE RISK MANAGER RECORDS Migraine with aura 12/01/2024 Overview (12/01/2024): PER [facility] INSURANCE RISK MANAGER RECORDS Moderate persistent asthma 12/01/2024 Subacute and chronic vaginitis 12/01/2024 Other specified anemias 08/03/2024 Small bowel obstruction (CMS/HCC V24, CMS/HCC V2 8) 08/01/2024 Perineal itching, female 05/05/2024 Overview (12/01/2024): Suspect eczema, Rx sent trimacinolone Vaginal discharge 05/05/2024 Overview (12/01/2024): With some odor Perineal itching c/w eczema Class 2 obesity with body ma ss index (BMI) of 39.0 to 39.9 in adult 04/20/2024 Hypertension 12/19/2023 Breast hypertrophy 11/11/2023 Excessive and frequent menstruation 01/13/2023 Iron deficiency anemia 01/13/2023 Labral tear of shoulder, left, initial encounter 12/04/2021 Anxiety 07/28/2014 Depression 07/28/2014 Asthma 01/14/2013 Chest pain 06/10/2012 Overview (04/20/2024): 06/08-stress test negative Carpal tunnel syndrome 07/26/2010 Overview (04/20/2024): 07/07-emg severe harman Encounters Date Type Department Care Team Description 02/24/2025 Telephone Pulmonology - [place] [address] [facility] [address] [place] [address] Jayna Best MD 12/17/2024 8:50 AM EDT Office Visit Gastroenterology - [facility] [address] [facility] [address] [place] [address] Lulu Bull PA Irritable bowel syndrome with constipation (Primary Dx); SBO (small bowel obstruction) (CMS/HCC V24, CMS/HCC V28) 12/04/2024 Telephone Gastroenterology - [address] [facility] [address] [facility] [address] [place] [phone] Jose Canas MD 12/01/2024 1:15 PM EDT Office Visit Bariatric Surgery - [place] [address] [facility] [address] [place] [phone] Chayo Sal MD Class 2 obesity due to excess calories with body mass index (BMI) of 35.0 to 35.9 in adult, unspecified whether serious comorbidity present (Primary Dx) from Last 3 Months Immunizations Immunization Administration Dates Next Due Hepatitis B (Dzqgjmi-O-Cdcyg , Recombivax HB-Adult) 19yo and older 2012 Influenza trivalent, 0.5mL, preservative free (Fluarix; FluLaval; Fluzone) ages 6mo and older (Afluria) 3 years and older 04/01/2012 PPD Test 01/11/2015,10/27/2012,12/24/2011 Tdap Tetanus diptheria acell ular pertussis (Boostrix; Adacel) 7yo and older 09/02/2012 Surgical History Surgery Date Site/Laterality Comments OTHER SURGICAL HISTORY PROCEDURE: HISTORICAL CERCLAGE SURGERY; COMMENT: incomp cx CARPAL TUNNEL RELEASE 06/04/12 PROCEDURE: HISTORICAL CARPAL TUNNEL REL; COMMENT: left COLONOSCOPY W/ BIOPSIES 08/05/2014 PROCEDURE: MD COLONOSCOPY W/BIOPSY SINGLE/MULTIPLE; COMMENT: random bx: normal. ESOPHAGOGASTRODUODENOSCOPY 01/03/2016 Medical History Medical History Date Comments Heart murmur DX:Heart murmur Asthma 01/14/2013 DX:Asthma Other specified personal his tory presenting hazards to health(V15.89) 2001 DX:Other specifie d personal history presenting hazards to health(V15.89); COMMENT: pos HPV Hypertension 12/19/2023 GERD (gastroesophageal reflux disease) 12/01/2024 Family History Medical History Relation Name Comments Blindness Aunt glaucoma Ovarian cancer Aunt Cataracts Maternal Grandmother glaucom a Breast cancer Neg Hx Colon cancer Neg Hx Macular degeneration Neg Hx strabis mus Relation Name Status Comments Aunt Brother 1 Alive Brother 2 Alive Brother 3 Alive Father Alive Maternal Grandfather Alive Maternal Grandmother Alive Mother Alive Paternal Grandfather Alive Paternal Grandmother Alive Sister 1 Alive Sister 2 Alive Sister 3 Alive Son 1 Alive 4 Son 2 Alive 5 Social History Tobacco Use Types Packs/Day Years Used Date Smoking Tobacco: Never Smokeless Tobacco: Never Alcohol Use Standard Drinks/Week Comments No 0 (1 standard drink = 0.6 oz pur e alcohol) Comments Unknown Sex and Gender Information Value Date Recorded Sex Assigned at Not on file Legal Sex Female 9:32 PM EDT Gender Identity Not on file Sexual Orientation Not on file Obstetrics History Last Filed Vital Signs Vital Sign Reading Time Taken Comments Blood Pressure 117/76 12/01/2024 1:17 PM EDT Pulse 75 12/01/2024 1:17 PM EDT Temperature 36.6 C (97.8 F) 12/01/2024 1:17 PM EDT Respiratory Rate - - Oxygen Saturation - - Inhaled Oxygen Concentration - - Weight 88.9 kg (196 lb) 12/17/2024 9:01 AM EDT Height 157.5 cm (5' 2 ) 12/17/2024 9:01 AM EDT Body Mass Index 35.85 12/17/2024 9:01 AM EDT Plan of Treatment Upcoming Encounters Date Type Department Care Team (Late st Contact Info) Description 03/11/2025 8:50 AM EDT Office Visit Gastroenterology - [address] [facility] [address] [facility] [address] [place] [phone] Cornelius Pruitt PA [address] [place] [address] 05/04/2025 1:15 PM EST Office Visit Bariatric Surgery - [place] [address] [facility] [address] [place] [phone] Chayo Sal MD [address] [place] [phone] Health Maintenance Due Date Last Done Comments Breast Cancer Screening 1982 Pneumococcal Vaccine: Pediatrics (0 to 5 Years) and At-Risk Patients (6 to 49 Years) (1 of 2 - PCV) 2001 HPV Vaccines (1 - 3-dose SCDM series) 2009 Hepatitis B Vaccines (3 of 3 - 19+ 3-dose series) 06/20/2016 04/25/2016, 2012 Cervical Cancer Screening: Pap Smear 07/21/2016 07/21/2013, 07/21/2013 Hepatitis C Screening 10/13/2021 Social Influencers of Health Screening 10/13/2021 Depression Screening 05/27/2024 COVID-19 Vaccine ( - season) 2025 05/05/2021, 04/14/2021 Influenza Vaccine (#1) 2025 , 04/01/2020, 03/12/2017, Additional history exists Hypertension/CHF/CAD Annual BMP Blood Test 12/10/2025 12/10/2024, 12/10/2024, 07/07/2015 Cholesterol Screening (Lipid Panel) 12/10/2029 12/10/2024, 10/15/2014 DTaP,Tdap,and Td Vaccines (3 - Td or Tdap) 04/05/2032 04/05/2022, 09/02/2012 RSV Immunization Adult Patients (1 - 1-dose 75+ series) 2057 HIV Screening Completed 08/14/2011 MMR Vaccines Aged Out 04/25/2016 No longer eligi ble based on patient's age to complete this topic HIB Vaccines Aged Out No longer eligi ble based on patient's age to complete this topic Hepatitis A Vaccines Aged Out No long er eligible based on patient's age to complete this topic IPV Vaccines Aged Out No longer eligi ble based on patient's age to complete this topic Meningococcal ACWY Vaccine Aged Out N o longer eligible based on patient's age to complete this topic Meningococcal B Vaccine Aged Out No l onger eligible based on patient's age to complete this topic RSV Immunization Patients Under 20 months Aged Out No longer eligible based on patient's age to complete this topic Varicella Vaccines Aged Out No longer eligible based on patient's age to complete this topic Procedures Procedure Name Priority Date/Time Associated Diagnosis Comments ANNUAL BMP BLOOD TEST Routine 07/07/2015 LIPID PANEL Routine 10/15/2014 HPV Routine 07/21/2013 HIV SCREENING Routine 08/14/2011 from Last 3 Months or Most Recently Relevant to Health Maintenance Results * Lipid panel (10/15/2014) LDL/HDL Ratio 2 0 - 4 Triglycerides 50 0 - 150 mg/dL Cholesterol 164 0 - 200 mg/dL HDL 67 >=40 mg/dL LDL Cholesterol 87 0 - 100 mg/dL Blood Venous blood specimen / Unknown us Historical Provider LAB BLOOD ORDERABLES Lissa l Result * Cervical Cancer Screening: HPV (07/21/2013) Pathologist [facility] Cervical Cancer Screening: HPV Negative, Abstracted us Historical Provider HEALTH MAINTENANCE Final Result * HIV Screening (08/14/2011) HIV Screening Abstracted Historical Provider HEALTH MAINTENANCE Final Result from Last 3 Months or Most Recently Relevant to Health Maintenance Insurance MEDICAID - [place] Care Teams Development Manager Relationship Specialty Start Date End Date Maikel Warner DO [address] [place] [phone] PCP - General 09/26/21
--- OUTSIDE RECORDS SUMMARY | 2025-03-02 03:07 | XMS_ITS | Clinical Summary ---
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 0 06/28/2021 Active montelukast (SINGULAIR) 10 MG tablet Take 10 mg by mouth every morning. 0 07/16/2021 Active Vit-Iron Carbonyl-FA (PNV Tabs 29-1) 29-1 MG TABS Take 1 tablet by mouth daily. 0 07/07/2021 Active Active Problems Problem Noted Date Diagnosed Date Labral tear of shoulder, left, initial encounter 12/04/2021 Family History Medical History Relation Name Comments Diabetes Mother Hypertension Mother Relation Name Status Comments Mother Social History Tobacco Use Types Packs/Day Years Used Date Smoking Tobacco: Never Smokeless Tobacco: Never Alcohol Use Standard Drinks/Week Comments Not Currently 0 (1 standard drink = 0.6 oz pur e alcohol) Sex and Gender Information Value Date Recorded Sex Assigned at Not on file Gender Identity Not on file Sexual Orientation Not on file Job Start Date Occupation Industry Not on file Not on file Not on file Last Filed Vital Signs Vital Sign Reading Time Taken Comments Blood Pressure - - Pulse - - Temperature - - Respiratory Rate - - Oxygen Saturation - - Inhaled Oxygen Concentration - - Weight 97.1 kg (214 lb) 12/04/2021 2:06 PM EDT Height 157.5 cm (5' 2 ) 12/04/2021 2:06 PM EDT Body Mass Index 39.14 12/04/2021 2:06 PM EDT Plan of Treatment Health Maintenance Due Date Last Done Comments Hepatitis B Vaccines (1 of 3 - 3-dose series) 1982 Hepatitis C Screening 1982 COVID-19 Vaccine (#1) 1982 Depression Screening 1994 BMI Counseling 01/10/2000 Preventative Health Evaluation 01/10/2000 Cervical Cancer Screening (Pap Smear) 2003 DTap / Tdap / Td (2 - Td or Tdap) 09/02/2022 09/02/2012 Influenza Vaccine (#1) 2025 7, 04/01/2012 Pneumococcal Vaccine Aged Out No long er eligible based on patient's age to complete this topic RSV Ped < 20 months Aged Out No longe r eligible based on patient's age to complete this topic Care Teams [employer]angel[employer] Conservation Laborer Relationship Specialty Start Date End Date Maikel Warner MD [address] [facility] [address] PCP - General Internal Medicine 09/26/21
--- NOTE | 2025-03-02 03:11 | ED_ITS ---
HPI - SOB/Dyspnea General Chief Complaint: Dyspnea Stated Complaint: difficulty breathing (asthma) Time Seen by Provider: 03/02/25 00:28 Source: patient Mode of arrival: ambulatory Limitations: no limitations History of Present Illness ED Provider: Dr. Nahomi Lopez HPI Narrative: 45 year old female with history of asthma presenting with SOB, cough productive of clear sputum ongoing for several days now. Patient admits that she has been dealing with an upper respiratory infection for weeks. Was seen at an urgent care about a week ago and diagnosed with bronchitis. Given prednisone and a Z- Sen without relief. She finished the course of this about 4 days ago but continues to have a hacking cough that is not relieved with her rescue inhaler. No reported fever in the last 24 hours. No hemoptysis. No lower extremity edema or pain, nausea, vomiting, diarrhea, urinary complaints, known sick contacts or travel. Related Data Previous Rx's ?Medication ?Instructions ?Recorded albuterol sulfate 2.5 mg/0.5 mL 2.5 mg (0.5 mL) inhala tion Q20M 03/02/25 solution for nebulization #30 ea albuterol sulfate 90 mcg/actuation 2 inh inhalation Q4 H PRN shortness 03/02/25 breath activated powder inhaler of breath #1 ea codeine 10 mg-guaifenesin 100 mg/5 5 ml PO Q6H PRN cou gh #118 mL 03/02/25 mL oral liquid (G Tussin AC) prednisone 10 mg tablet 10 mg PO DIRECTED #60 tab s 03/02/25 Allergies Allergy/AdvReac Type Severity Reaction Status Date / Time aspirin (ASA) AdvReac Difficulty Verified 03/01/25 21:42 Breathing latex AdvReac Blister Verified 03/01/25 21:42 Review of Systems Review of Systems: as per HPI, full review of systems performed and negative but for the above mentioned pertinent positives and negatives. [facility] Social History Social History Smoked in Last 30 Days: No Use of substances other than those prescribed or required for medical reasons: No Advance Directives: No Advance Directives Information Provided: Yes Patient : No Physical Exam Exam: Exam: GENERAL: Ill-appearing, moderate respiratory distress. SKIN: Normal skin color for ethnicity, warm, dry, no rashes noted. HEENT:? Normocephalic, atraumatic, no stridor, EOMI. NECK: Soft, supple, full ROM, midline structures nontender, no step-offs, no deformities, no lymphadenopathy. CHEST: Heart regular tachycardia, symmetric chest rise and fall. PULMONARY: Diffuse wheezes throughout, tachypnea, poor air movement bilaterally, moderate respiratory distress, frequent bronchospastic cough. ABDOMINAL: Soft, nontender, quiet bowel sounds in all quadrants. : Deferred. MUSCULOSKELETAL: Normal tone, full range of motion, no deformities, no peripheral edema. NEURO: Alert and oriented to person, CN II through XII intact, no focal neurolo gic deficits.? PSYCHIATRIC: Anxious affect, appropriate demeanor. Vital Signs: Vital Signs: Last Vital Signs Temp 98.4 F 03/02/25 04:49 Pulse 99 03/02/25 04:49 Resp 20 03/02/25 04:49 BP 112/48 L 03/02/25 04:49 Pulse Ox 97 03/02/25 04:49 O2 Del Method Room Air 03/02/25 04:49 BMI result Body Mass Index 31.8 Medications Administered Discontinued Medications Generic Name Dose Route Start Last Admin Trade Name Freq PRN Reason Stop Dose Admin Albuterol Sulfate 7.5 mg/ 10 mg 03/02/25 01:53 03/02/25 02:07 Albuterol Sulfate 2.5 mg INHALE 03/02/25 01:54 10 mg ONCE ONE Administration Albuterol Sulfate 2.5 mg/ 0 mg 03/02/25 00:41 03/02/25 00:43 Albuterol/Ipratropium 3 ml INHALE 03/02/25 00:42 5 dose ONCE ONE Administration Guaifenesin/Codeine Phosphate 5 ml 03/02/25 01:54 03/02/25 02:29 Guaifen/Codeine Sf 200/20/10ml 10 Ml Liquid PO 03/02/25 01:55 5 ml ONCE ONE Administration Prednisone 60 mg 03/02/25 01:53 03/02/25 02:29 Prednisone 20 Mg Tablet PO 03/02/25 01:54 60 mg ONCE ONE Administration Medical Decision Making Medical Decision Making MDM Narrative: Patient presents today with chief complaint of shortness of breath. Differential diagnosis includes, but is not limited to, upper respiratory infection, pneumonia, COPD exacerbation, asthma exacerbation, CHF, pneumothorax, pleural effusion, pulmonary embolism, ACS. Broad-based work-up will be initiated to evaluate for etiology of patient's symptoms. Clinical picture consistent with bronchitis that is associated with bronchospasm. Plan for prednisone common albuterol inhaler and nebulizer treatments as well as Robitussin AC to help with her cough. Discussed importance of follow-up. 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 Discharged in stable condition. Differential Diagnosis Differential Diagnoses: The differential diagnosis associated with the presentation includes (as above) Admission/Observation Consideration of admission/observation: Escalation of care including admission/observation considered Lab Data MDM Lab Attestation statement: I reviewed the patient's lab results. Labs: Lab Results 03/01/25 Range/Units 21:56 Influenza Type A (PCR) NEGATIVE (Negative) Influenza Type B (PCR) NEGATIVE (Negative) RSV RNA Qual (PCR) NEGATIVE (Negative) SARS-CoV-2 RNA (RT-PCR) NEGATIVE (Negative) Independent Interpretation I performed an independent interpretation of an: Plain X-Ray Interpretation: My independent interpretation of the chest x-ray reveals no consolidations, pulmonary edema, pleural effusion, pneumothorax, obvious bony abnormalities. Radiology Impression Discussion of test interpretation with radiology: I have reviewed the radiologist's reading. External Record Review External record reviewed: Inpatient record Prescription Management I considered prescription management with: Antibiotic and Other (steroids, beta agonists) Chronic Conditions Patient?s care impacted by: Other (asthma) Discharge Plan Discharge Clinical Impression: Asthma without acute exacerbation, Acute bronchitis with bronchospasm Patient Disposition: Home, Self-Care Instructions: Acute Bronchitis (ED) Prescriptions: New albuterol sulfate 90 mcg/actuation aerosol powdr breath activated 2 inh inhalation Q4H PRN (Reason: shortness of breath) Qty: 1 0RF codeine-guaifenesin [G Tussin AC] 10-100 mg/5 mL liquid 5 ml PO Q6H PRN (Reason: cough) Qty: 118 0RF albuterol sulfate 2.5 mg/0.5 mL solution for nebulization 2.5 mg inhalation Q20M Qty: 30 0RF Rx Instructions: for up to 3 doses prednisone 10 mg tablet 10 mg PO DIRECTED Qty: 60 0RF Rx Instructions: 60mg x5 days, 40mg x5 days, 20mg x5 days Interventions: ED Discharge Assessment Last Done: 03/02/25 04:49 Discharge Date/Time: 03/02/25 04:51 Print Language: Russian
[2025-03-02 04:44] VITALS: BP 112/48; PULSE 99; RESP 20; TEMP 36.9; O2SAT 97
[2025-03-02 04:49] VITALS: BP 112/48; PULSE 99; RESP 20; TEMP 36.9; O2SAT 97
== END 2025-03-02 04:51 | disposition home or self-care (01) ==
PROVIDERS: Emergency Provider Emergency Medicine
DX: J45.901 Unspecified asthma with (acute) exacerbation (principal); J20.9 Acute bronchitis, unspecified
CPT/HCPCS: 71046; 87637; 94640; 99284; 99285

== ENCOUNTER → 2025-03-01 21:50 | Outpatient (BNV) | payer OTHER, SELFPAY | PROVIDERS: Visit Provider Radiology Diagnostic Radiology | DX: R05.9 Cough, unspecified (principal); R06.02 Shortness of breath | CPT/HCPCS: 71046 ==